=== PATIENT | male | born 2000 | race Caucasian/White ===

== ENCOUNTER 2018-07-05 00:11 | Emergency (ER) | payer OTHER, SELFPAY ==
[~2018-07-05] VITALS: Ht 170.2 cm; Wt 84.1 kg
[2018-07-05] MEDS ORDERED: cefTRIAXone SOD 1 GM VIAL (J0696) IM ONE (01:00)
[2018-07-05] MEDS ORDERED: LIDOCAINE 1% SDV 5 ML VIAL DILUENT ONE (01:00)
[2018-07-05] MEDS ORDERED: KEFL500C17 PO (01:30)
[2018-07-05 01:42] VITALS: BP 116/73
== END 2018-07-05 02:01 | disposition home or self-care (01) ==
LOC: M ED 00:11
DX: L03.113 Cellulitis of right upper limb (principal); W57.XXXA Bitten or stung by nonvenomous insect and other nonvenomous arthropods, initial encounter; Y92.89 Other specified places as the place of occurrence of the external cause
CPT/HCPCS: 96372; 99283; J0696

== ENCOUNTER → 2020-08-12 | Outpatient (CLI) | payer OTHER ==
[~2020-08-12] MED LIST: KEFL500C17 PO
--- NOTE | 2020-08-12 13:22 | REP ---
INDICATION: PAIN COMPARISON: None. TECHNIQUE: AP, lateral, bilateral oblique views. FINDINGS: Moderate swelling. No acute fracture or dislocation. Skeletal structures and joint spaces are intact and normal. Ankle mortise appears stable. No subcutaneous emphysema or radiodense foreign body. IMPRESSION: Swelling. No fracture or dislocation <Electronically signed by Issa Arizmendi > 08/12/20 [id number]
== END ==
LOC: M WUC 12:44
PROVIDERS: ATTEND Nurse Practitioner Family
DX: M25.572 Pain in left ankle and joints of left foot (principal); Z20.2 Contact with and (suspected) exposure to infections with a predominantly sexual mode of transmission; M79.89 Other specified soft tissue disorders